=== PATIENT | female | born 1995 | race Hispanic/Latino ===

== ENCOUNTER 2024-03-07 00:22 | Emergency (ER) | payer SELFPAY ==
[~2024-03-07] VITALS: Ht 167.6 cm; Wt 90.7 kg
[2024-03-07 00:30] VITALS: TEMP 98.2
[2024-03-07 01:13] LABS: BASOPHILS # (AUTO) 0.1 (0.0-0.1); BASOPHILS % 0.7 % (0.0-1.0); EOSINOPHILS # (AUTO) 0.1 (0.0-0.4); EOSINOPHILS % 0.6 % (0.0-6.0); HEMATOCRIT 44.5 % (34.2-44.1); HEMOGLOBIN 15.7 g/dL (12.0-16.0); MEAN CORPUSCULAR HEMOGLOBIN 27.6 pg (28-32); MEAN CORPUSCULAR HGB CONC 35.3 g/dL (31-35); MEAN CORPUSCULAR VOLUME 78.2 fL (81-99); MONOCYTES # (AUTO) 0.7 (0.2-0.8); MONOCYTES % 4.6 % (4.4-11.3); NEUTROPHILS # (AUTO) 10.3 (2.1-6.9); NEUTROPHILS % 72.7 % (38.7-80.0); PLATELET COUNT 385 x10e3/uL (140-360); RED BLOOD COUNT 5.69 x10e6/uL (3.6-5.1); RED CELL DISTRIBUTION WIDTH 12.3 % (11.7-14.4); WHITE BLOOD COUNT 14.17 x10e3/uL (4.8-10.8)
[2024-03-07 01:38] LABS: ALBUMIN 3.6 g/dL (3.5-5.0); ALBUMIN/GLOBULIN RATIO 0.9 (0.8-2.0); ANION GAP 15.4 mmol/L (8-16); BILIRUBIN,TOTAL 0.7 mg/dL (0.2-1.2); TOTAL PROTEIN 7.8 g/dL (6.5-8.1)
[2024-03-07 01:44] LABS: BILIRUBIN,URINE NEGATIVE (NEGATIVE); CLARITY,URINE CLEAR (CLEAR); COLOR,URINE YELLOW (YELLOW); GLUCOSE, URINE >=1000 (NEGATIVE); KETONES,URINE NEGATIVE (NEGATIVE); LEUKOCYTE ESTERASE ,URINE NEGATIVE (NEGATIVE); NITRITE,URINE NEGATIVE (NEGATIVE); PH,URINE 6 (5 - 7); PREGNANCY TEST, URINE NEGATIVE (NEGATIVE); PROTEIN,URINE DIPSTICK 2+ (NEGATIVE); URINE UROBILINOGEN 0.2 mg/dL (0.2 - 1)
[2024-03-07 01:58] LABS: POTASSIUM 3.4 mmol/L (3.5-5.1)
[2024-03-07 02:28] LABS: BACTERIA,URINE FEW /HPF; EPITHELIAL CELLS,URINE MODERATE /LPF; WBC,URINE (MAN) 0-5 /HPF (0-5)
[2024-03-07] MEDS ORDERED: IOPAMIDOL 370 MG/ML 100 ML INFUS..BTL INJ ONE (02:48)
[2024-03-07] MEDS: SODIUM CHLORIDE 0.9% 1000ML 1,000 ML IV STA (02:53)
[2024-03-07] MEDS: INSULIN REGULAR, HUMAN 100 UNIT/1 ML IV STA (02:55)
[2024-03-07 03:29] VITALS: PULSE 94; RESP 15
[2024-03-07] MEDS: SODIUM CHLORIDE 0.9% 1000ML 1,000 ML IV ONE (03:46)
[2024-03-07] MEDS: KETOROLAC TROMETHAMINE 30 MG/ML VIAL IV STA (03:48)
[2024-03-07 04:53] VITALS: BP 148/108; PULSE 88; RESP 19; TEMP 98; O2SAT 99
== END 2024-03-07 04:55 | disposition home or self-care (01) ==
LOC: ER 00:32
DX: R10.12 Left upper quadrant pain (principal); E11.65 Type 2 diabetes mellitus with hyperglycemia; I10 Essential (primary) hypertension
CPT/HCPCS: 36415; 74177; 80053; 81001; 81025; 82948; 83690; 85025; 99284; J1885; J7030; Q9967

== ENCOUNTER 2024-10-13 14:51 | Emergency (ER) | payer SELFPAY ==
[~2024-10-13] VITALS: Ht 168.9 cm; Wt 88.5 kg
[2024-10-13 15:47] LABS: BASOPHILS # (AUTO) 0.1 (0.0-0.1); BASOPHILS % 0.6 % (0.0-1.0); EOSINOPHILS # (AUTO) 0.1 (0.0-0.4); EOSINOPHILS % 0.8 % (0.0-6.0); HEMATOCRIT 42.9 % (34.2-44.1); HEMOGLOBIN 15.5 g/dL (12.0-16.0); LYMPHOCYTES # (AUTO) 2.9 (1.0-3.2); LYMPHOCYTES % 22.2 % (18.0-39.1); MEAN CORPUSCULAR HGB CONC 36.1 g/dL (31-35); MEAN CORPUSCULAR VOLUME 77.4 fL (81-99); MONOCYTES # (AUTO) 0.6 (0.2-0.8); MONOCYTES % 4.7 % (4.4-11.3); NEUTROPHILS # (AUTO) 9.4 (2.1-6.9); NEUTROPHILS % 71.5 % (38.7-80.0); PLATELET COUNT 357 x10e3/uL (140-360); RED BLOOD COUNT 5.54 x10e6/uL (3.6-5.1); RED CELL DISTRIBUTION WIDTH 12.1 % (11.7-14.4); WHITE BLOOD COUNT 13.08 x10e3/uL (4.8-10.8)
[2024-10-13] MEDS: LABETALOL HCL 5 MG/ML 20ML VIAL IV STA ×2 (15:55→17:51)
[2024-10-13 16:01] LABS: COLOR,URINE YELLOW (YELLOW)
[2024-10-13 16:02] LABS: BILIRUBIN,URINE NEGATIVE (NEGATIVE); CLARITY,URINE HAZY (CLEAR); GLUCOSE, URINE 500 (NEGATIVE); KETONES,URINE NEGATIVE (NEGATIVE); LEUKOCYTE ESTERASE ,URINE NEGATIVE (NEGATIVE); NITRITE,URINE POSITIVE (NEGATIVE); PH,URINE 6 (5 - 7); PROTEIN,URINE DIPSTICK >=300 (NEGATIVE); URINE UROBILINOGEN 0.2 mg/dL (0.2 - 1)
[2024-10-13 16:03] LABS: INR 0.89; PARTIAL THROMBOPLASTIN TIME 25.7 seconds (23.8-35.5); PROTHROMBIN TIME 12.6 seconds (11.9-14.5)
[2024-10-13 16:11] LABS: WBC,URINE (MAN) 21-50 /HPF (0-5)
[2024-10-13 16:12] LABS: BACTERIA,URINE FEW /HPF; EPITHELIAL CELLS,URINE MANY /LPF; RBC,URINE 0-5 /HPF (0-5)
[2024-10-13 16:13] LABS: TRICHOMONAS,URINE RARE
[2024-10-13 16:14] LABS: ALANINE AMINOTRANSFERASE 31 IU/L (0-55); ALBUMIN 3.4 g/dL (3.5-5.0); ALBUMIN/GLOBULIN RATIO 0.9 (0.8-2.0); ALKALINE PHOSPHATASE 83 IU/L (40-150); ANION GAP 15.2 mmol/L (8-16); BILIRUBIN,TOTAL 0.8 mg/dL (0.2-1.2); BLOOD UREA NITROGEN 12 mg/dL (7-26); BUN/CREATININE RATIO 15 (6-25); CALCIUM 8.7 mg/dL (8.4-10.2); CARBON DIOXIDE 26 mmol/L (22-29); CHLORIDE 92 mmol/L (98-107); CREATINE KINASE 41 IU/L (29-168); CREATININE, SERUM 0.82 mg/dL (0.57-1.11); EST GLOMERULAR FILTRATION RATE 99 ML/MIN (>=60); MAGNESIUM 1.8 MG/DL (1.3-2.1); SODIUM 130 mmol/L (136-145); TOTAL PROTEIN 7.1 g/dL (6.5-8.1)
[2024-10-13 16:15] LABS: POTASSIUM 3.2 mmol/L (3.5-5.1)
[2024-10-13 16:16] LABS: GLUCOSE 508 mg/dL (74-118)
[2024-10-13 16:20] LABS: TROPONIN I 0.009 ng/mL (0-0.300)
[2024-10-13] MEDS: SODIUM CHLORIDE 0.9% 1000ML 1,000 ML IV STA ×2 (16:36→17:27)
[2024-10-13] MEDS: INSULIN REGULAR, HUMAN 100 UNIT/1 ML IV ONE (17:19)
[2024-10-13] MEDS: AZITHROMYCIN 250 MG TAB PO ONE (17:21)
[2024-10-13 17:51] VITALS: BP 203/130; PULSE 98
[2024-10-13 18:40] VITALS: PULSE 94; RESP 16; TEMP 98.4; O2SAT 99
[2024-10-13] MEDS ORDERED: METFORMIN HCL500 MG PO (18:50)
[2024-10-13] MEDS ORDERED: LOSARTAN POTASS50 MG PO (18:50)
[2024-10-13] MEDS ORDERED: METRONIDAZOLE500 MG PO (18:50)
[2024-10-13] MEDS ORDERED: DOXYCYCLINE HY100 MG PO (18:50)
[2024-10-13] MEDS ORDERED: ACYCLOVIR200 MG PO (18:50)
== END 2024-10-13 19:23 | disposition home or self-care (01) ==
LOC: ER 15:14
DX: R10.2 Pelvic and perineal pain (principal); A63.8 Other specified predominantly sexually transmitted diseases; B00.89 Other herpesviral infection; A59.01 Trichomonal vulvovaginitis; E11.65 Type 2 diabetes mellitus with hyperglycemia; I10 Essential (primary) hypertension; E78.5 Hyperlipidemia, unspecified
CPT/HCPCS: 36415; 80053; 81001; 82550; 82948; 83735; 83880; 84484; 84702; 85025; 85610; 85730; 93005; 99284; J0696; J3490; J7030

== ENCOUNTER 2024-11-27 21:36 | Emergency (ER) | payer SELFPAY ==
[~2024-11-27] VITALS: Ht 167.6 cm; Wt 93.4 kg
[~2024-11-27 21:36] MED LIST: ACYCLOVIR200 MG PO; DOXYCYCLINE HY100 MG PO; LOSARTAN POTASS50 MG PO; METFORMIN HCL500 MG PO; METRONIDAZOLE500 MG PO
[2024-11-27 21:53] VITALS: TEMP 97.8
[2024-11-27] MEDS ORDERED: CLONIDINE HCL 0.1 MG TAB PO ONE (22:00)
[2024-11-27] MEDS: TETANUS/DIPHTHERIA TOX ADULT 0.5 ML SYR IM ONE (22:46)
[2024-11-28] MEDS ORDERED: NORVASC10 MG PO (00:02)
[2024-11-28] MEDS ORDERED: CEPHALEXIN500 MG PO (00:02)
[2024-11-28] MEDS ORDERED: METFORMIN HCL500 MG PO (00:02)
[2024-11-28] MEDS ORDERED: BACTRIM DS TAB1 EACH PO (00:02)
[2024-11-28] MEDS: AMLODIPINE BESYLATE 10 MG TAB PO ONE (00:04)
[2024-11-28] MEDS: METFORMIN HCL 500 MG TAB CR PO ONE (00:04)
[2024-11-28 00:05] VITALS: PULSE 95; RESP 18
[2024-11-28 00:47] VITALS: BP 191/109; PULSE 95; RESP 18; TEMP 98; O2SAT 98
== END 2024-11-28 00:47 | disposition home or self-care (01) ==
LOC: FSED 21:39
DX: L03.116 Cellulitis of left lower limb (principal); W01.0XXA Fall on same level from slipping, tripping and stumbling without subsequent striking against object, initial encounter; Y93.01 Activity, walking, marching and hiking; Y92.89 Other specified places as the place of occurrence of the external cause; I10 Essential (primary) hypertension; E11.65 Type 2 diabetes mellitus with hyperglycemia; E78.5 Hyperlipidemia, unspecified
CPT/HCPCS: 73590; 80053; 81003; 82553; 85025; 85610; 90471; 90714; 93971; 99284; J0690; J7050